=== PATIENT | female | born 1980 | race American Indian/Alaskan Native ===

== ENCOUNTER 2017-09-26 05:58 | Emergency (ER) | payer BC ==
[2017-09-26 07:21] VITALS: BMI 28.0
--- NOTE | 2017-09-27 11:05 | OBHP ---
Datetime: 09/26/2017 07:15 IP Adm Impression: Term, intrauterine ; Intact Membranes IP Admit Plan: Observation/Evaluation Admit Comment, IP Provider: 36 yo female with an IUP at 38 weeks/ 1 14 yrs ago AMA Pt states that she is here for IOL, as per her doctor Pt states I am feeling Weber Ayala contractions but not painful Admits to adequate FM Denies LOF or vaginal bleeding Will monitor and discuss with her Attending Pelvic Type - PN: Adequate Extremities - PN: Normal Abdomen - PN: Normal Back - PN: Not Done Breast - PN: Not Done Lungs - PN: Normal Heart - PN: Normal Thyroid - PN: Normal Neurologic - PN: Normal HEENT - PN: Normal General - PN: Normal Presentation-Admit: Vertex FHR - Baseline A Provider: 140 Membranes, Provider: Intact Contraction Comments Provider: Irregular and mild Gestation - Est Wks by US: 38.0 EGA AdmitDate IP: 38.0 Vital Signs Provider: Reviewed; Within Normal Limits IP Chief Complaint: evaluation NICHD Variability Prov Fetus A: Moderate 6-25bpm NICHD Accel Fetus A IP Provider: [id number] FHR Category Provider Fetus A: Category I NICHD Decel Fetus A IP Provider: None Dilatation, Provider: 0 Effacement, Provider: 30 Station, Provider: -3 Genitourinary Exam: Normal DTRs - PN: Not Done
[2017-09-27 15:03] VITALS: BP 108/66; PULSE 85; RESP 18; TEMP 98
== END 2017-09-26 07:40 | disposition home or self-care (01) ==
LOC: C.EROB 05:58
DX: O47.1 False labor at or after 37 completed weeks of gestation (principal); Z3A.38 38 weeks gestation of pregnancy